=== PATIENT | male | born 2000 | race Caucasian/White ===

== ENCOUNTER 2023-09-03 18:32 | Emergency (ER) | payer BC ==
[2023-09-03] MEDS: Lidocaine 1% 5 ML VIAL INJECT ONE (19:11)
[2023-09-03] MEDS: Bacitracin Oint 1 GM U/D Packet TOP ONE (19:11)
[2023-09-03] MEDS: Diphtheria,Pertussis(Acell),Tetanus Vaccine 0.5 ML Syringe IM ONE (19:12)
== END 2023-09-03 19:55 | disposition home or self-care (01) ==
LOC: JP.ED 18:32
DX: S61.214A Laceration without foreign body of right ring finger without damage to nail, initial encounter (principal); Z23 Encounter for immunization; W26.8XXA Contact with other sharp object(s), not elsewhere classified, initial encounter; Y93.B3 Activity, free weights
CPT/HCPCS: 12001; 73140-26-F8; 73140-F8; 90471; 90715; 99283-25